=== PATIENT | female | born 1970 | race Caucasian/White ===

== ENCOUNTER 2016-05-16 09:41 | Observation (INO) ==
[2016-05-16 10:26] LABS: HEMATOCRIT 51.7 % (37.0-47.0); HEMOGLOBIN 17.8 g/dL (12.0-16.0); MANUAL DIFF NEEDED? YES; MCH 30.9 PG (27-31); MCHC 34.4 g/dL (33-37); MCV 89.8 FL (81-99); MPV 10.2 FL (7.4-10.4); PLT 316 X1000 (130-400); RBC 5.76 XMIL (4.2-5.4)
[2016-05-16 10:41] LABS: AGAP 17; ALBUMIN 4.1 g/dL (3.5-5.0); ALKALINE PHOSPHATASE 84 U/L (32-104); AMYLASE 69 U/L (20-200); BUN 17 mg/dL (8-22); CALCIUM 9.6 mg/dL (8.8-10.2); CHLORIDE 96 mmol/L (98-107); COSMO 276; GOT 21 U/L (10-30); GPT 21 U/L (10-36); LIPASE 32 U/L (13-60); POTASSIUM 4.6 mmol/L (3.5-5.1); SODIUM 136 mmol/L (136-145); TCO2 23 mmol/L (25-35); TOTAL BILIRUBIN 0.91 mg/dL (0.20-1.00); TOTAL PROTEIN 8.7 g/dL (6.3-8.3)
[2016-05-16] MEDS ORDERED: BENTYL IM ONE (10:44)
[2016-05-16] MEDS ORDERED: NS 1,000 ML IV ONE (10:44)
[2016-05-16] MEDS ORDERED: ZOFRAN IV ONE (10:44)
[2016-05-16 10:50] LABS: BANDS 14 % (0-1); LYMPHS 2 % (21-51); MONO 2 % (1-9)
--- NOTE | 2016-05-16 10:51 | PROVIDER DOCUMENTATION ---
HPI-Abdominal Pain/GI Problem - General Chief Complaint: Abdominal Pain Stated Complaint: ABD PAIN Time Seen by Provider: 05/16/16 10:35 Allergies/Adverse Reactions: Patient Allergies Allergy/AdvReac Type Severity Reaction Status Date / Time Penicillins Allergy Severe SWELLING Verified 04/17/16 21:17 propoxyphene HCl * Allergy Severe SHORTNESS Verified 04/17/16 21:17 [From Darvon] OF BREATH Sulfa (Sulfonamide Allergy Severe SHORTNESS Verified 04/17/16 21:17 Antibiotics) OF BREATH [Sulfa(Sulfonamide Antibiotics)] venom-wasp [wasp venom] Allergy Severe ANAPHYLAXIS Verified 04/17/16 21:17 ketorolac tromethamine * Allergy Mild RASH Verified 04/17/16 21:17 [From Toradol] codeine [Codeine] Allergy HIVES Verified 04/17/16 21:17 Home Medications: Home Medication List Medication Instructions Recorded Confirmed Last Taken Type Levetiracetam [Keppra] 500 mg PO BID 06/09/15 04/17/16 2 Weeks Ago History Ramipril [Altace] 2.5 mg PO DAILY 06/09/15 04/17/16 07/31/15 07:00 History Alprazolam [Xanax] 0.5 mg PO BID PRN PRN #45 tablet 06/11/15 04/17/16 2 Weeks Ago Rx Mupirocin Cream [Bactroban Cream] 1 applicatn TOP TID #1 tube 01/13/16 04/17/16 01/31/16 Rx Diclofenac Sodium 50 mg PO Q8-12H PRN PRN #30 02/02/16 04/17/16 Unknown Rx tablet. Glimepiride [Amaryl] 4 mg PO DAILY #30 tablet 02/02/16 04/17/16 Unknown Rx Omeprazole [Prilosec] 40 mg PO DAILY@0700 #30 capsule 02/02/16 04/17/16 Unknown Rx Promethazine [Phenergan] 25 mg PO Q6H PRN PRN #20 tablet 02/02/16 04/17/16 Unknown Rx Metoclopramide [Reglan] 10 mg PO Q6HR #30 tablet 04/16/16 04/17/16 Unknown Rx Ondansetron [Zofran] 4 mg PO Q6H PRN PRN #20 tablet 04/16/16 04/17/16 Unknown Rx - History of Present Illness-ABD Nature of Presenting Problems: A 45 y/o F presented with one day history of nausea multiple episodes of NBNB emesis associated with diffuse abdominal pain more prominant in epigastric region, no radiation of pain. Was doing well no recent travel, denies CP/SOB. No urinary symptoms Abdominal Pain Onset Location: reports: generalized abdomen Pain Radiation: reports: no radiation Quality of Pain: reports: cramping Severity in ED: reports: moderate Onset/Duration: reports: 24 hours ago Timing: reports: still present Activities at Onset: reports: none Exposure to sick contacts?: No Modifying Factors: improves with: nothing Associated Symptoms: reports: nausea, vomiting Last BM: unsure Dark Stools Present?: reports: none noticed Rectal Bleeding: reports: none # of Diarrhea Episodes: 3 Emesis Description: reports: clear Bruising or Bleeding Gums?: No Similar Symptoms Previously?: No Recently seen or treated by another doctor?: No Review of Systems - Adult - REVIEW OF SYSTEMS - ADULT Constitutional: reports: no symptoms reported Eyes: reports: no symptoms reported Ears, Nose, Mouth & Throat: reports: no symptoms reported Cardiovascular: reports: no symptoms reported Respiratory: reports: no symptoms reported Gastrointestinal: reports: see HPI Genitourinary: reports: no symptoms reported Musculoskeletal: reports: no symptoms reported Integumentary: reports: no symptoms reported Neurological: reports: no symptoms reported Psychiatric: reports: no symptoms reported Endocrine: reports: no symptoms reported Hematologic/Lymphatic: reports: no symptoms reported Allergic/Immunologic: reports: no symptoms reported All Other Systems: Reviewed and Negative Past History - Adult - PAST MEDICAL HISTORY-ADULT Review of Records: reports: Old Records Reviewed, Nursing Assessment Review, Medications Reviewed, Social history reviewed & non-contributory. Major Childhood Illnesses: reports: denies history Cardiovascular: reports: hyperlipidemia Respiratory: reports: denies history Gastrointestinal: reports: GERD Obstetrical/Gynecological: reports: denies history Genitourinary: reports: denies history Musculoskeletal: reports: arthritis, chronic pain, fibromyalgia Neurological: reports: Seizures/Epilepsy, TIA, other (sleep apnea) Endocrine/Immune: reports: Diabetes Other Conditions: reports: denies history - PRIOR SURGERIES/PROCEDURES Surgical/Procedure History: reports: other (arm, oral) - PRIOR HOSPITALIZATIONS Prior Hospitalizations: reports: for similar symptoms - IMMUNIZATION STATUS Childhood Immunizations: See Nurse Assessment Flu Vaccine: See Nurse Assessment - FAMILY HISTORY Family History: CAD under 55yo, CVA/TIA Physical Exam-General - PHYSICAL EXAM-ADULT Initial Vital Signs Reviewed: Yes - CONSTITUTIONAL General Appearance: appears well, mild distress - EYES Eyes: PERRL/EOMI, pink conjunctivae - HEAD, EARS, NOSE, MOUTH & THROAT HENMT: normocephalic/atraumatic, normal ENT inspection, pharynx normal - NECK Neck: non-tender, full range of motion - RESPIRATORY Respiratory: chest non-tender, lungs clear, normal breath sounds, no pleuratic chest pain, no respiratory distress, no accessory muscle use - CARDIOVASCULAR Cardiovascular: normal peripheral pulses, regular rate, rhythm, no edema, no gallop, no JVD, no murmur - GASTROINTESTINAL (ABDOMEN) Abdominal Exam: soft, no organomegaly, tenderness. 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, grossly normal, no motor/sensory deficits - PSYCHIATRIC Psych/Mental Status: normal mood/affect Progress - PLAN OF CARE/RESULTS Progress/Plan/Lab Results: Laboratory Tests 05/16/16 05/16/16 05/16/16 10:00 10:00 10:00 WBC 37.28 H RBC 5.76 H Hgb 17.8 H Hct 51.7 H MCV 89.8 MCH 30.9 MCHC 34.4 RDW Std Deviation 13.3 Plt Count 316 MPV 10.2 Neut % (Auto) Not Reportable Lymph % (Auto) Not Reportable [place] % (Auto) Not Reportable Eos % (Auto) Not Reportable Baso % (Auto) Not Reportable Neut # (Auto) Not Reportable Lymph # (Auto) Not Reportable [place] # (Auto) Not Reportable Eos # (Auto) Not Reportable Baso # (Auto) Not Reportable Segmented Neutrophils 75 Band Neutrophils 14 H Lymphocytes 2 L Monocytes 2 Metamyelocytes 4.0 Atypical Lymphocytes 3.0 Toxic Granulation 1+ Large Platelets OCCASIONAL Ovalocytes OCCASIONAL Sodium 136 Potassium 4.6 Chloride 96 L Carbon Dioxide 23 L Anion Gap 17 BUN 17 Creatinine 0.9 Estimated GFR/1.73 m2 > 60 BUN/Creatinine Ratio 19 Glucose 138 H Calculated Osmolality 276 Calcium 9.6 Total Bilirubin 0.91 AST 21 ALT 21 Alkaline Phosphatase 84 Troponin T < 0.010 Total Protein 8.7 H Albumin 4.1 Globulin 4.6 Albumin/Globulin Ratio 0.9 Amylase 69 Lipase 32 Plasma Lactate 05/16/16 12:00 WBC RBC Hgb Hct MCV MCH MCHC RDW Std Deviation Plt Count MPV Neut % (Auto) Lymph % (Auto) [place] % (Auto) Eos % (Auto) Baso % (Auto) Neut # (Auto) Lymph # (Auto) [place] # (Auto) Eos # (Auto) Baso # (Auto) Segmented Neutrophils Band Neutrophils Lymphocytes Monocytes Metamyelocytes Atypical Lymphocytes Toxic Granulation Large Platelets Ovalocytes Sodium Potassium Chloride Carbon Dioxide Anion Gap BUN Creatinine Estimated GFR/1.73 m2 BUN/Creatinine Ratio Glucose Calculated Osmolality Calcium Total Bilirubin AST ALT Alkaline Phosphatase Troponin T Total Protein Albumin Globulin Albumin/Globulin Ratio Amylase Lipase Plasma Lactate 3.0 H Orders Category Date Time Status FSBS/Accucheck Result AC + HS Care 05/16/16 13:06 Active Nursing- MD Consult Request ROUTINE Care 05/16/16 13:10 Active Saline Loc DIRECTED Care 05/16/16 09:55 Active MD [Physician/Provider Consults] Routine Cons 05/16/16 13:09 Ordered NPO Diet 05/16/16 09:[address] ABD/PELVIS W/ IV CONT ONLY [CT] Stat Exams 05/16/16 10:45 Draft A1C HGB W EST AVG GLUCOSE [CHEM] Routine Lab 05/17/16 06:00 Uncollected AMYLASE [CHEM] Stat Lab 05/16/16 10:00 Completed BLOOD CULTURE [BLDCUL] Stat Lab 05/16/16 12:00 Received CBC WITH ELECTRONIC DIFF [HEME] Stat Lab 05/16/16 10:00 Completed COMPREHENSIVE METABOLIC PANEL [CHEM] Stat Lab 05/16/16 10:00 Completed LACTATE, PLASMA [CHEM] Stat Lab 05/16/16 12:00 Completed LIPASE [CHEM] Stat Lab 05/16/16 10:00 Completed TROPONIN T Stat Lab 05/16/16 10:00 Completed URINALYSIS W/POSS RFLX CULT [URINALYSIS] Stat Lab 05/16/16 09:55 Uncollected 0.9% Sodium Chloride Inj [Ns] 1,000 ml Med 05/16/16 10:44 Discontinued IV 999 mls/hr Dicyclomine [Bentyl] Med 05/16/16 10:44 Discontinued 20 mg IM NOW ONE Insulin Human Regular [Humulin R] Med 05/16/16 16:00 Active See Protocol SUBQ 0700,1100,1600,2100 Ondansetron [Zofran] Med 05/16/16 10:44 Discontinued 4 mg IV NOW ONE EKG [EKG] Stat Ther 05/16/16 10:46 Ordered Transfer/Admit Order [TRANSFER] Routine Transfer 05/16/16 13:00 Ordered Vital Signs Temp Pulse Resp BP Pulse Ox 05/16/16 09:50 97.5 F L 108 H 20 105/74 100 Penicillins Allergy (Severe, Verified 04/17/16 21:17) SWELLING difficulty breathing propoxyphene HCl * [From Darvon] Allergy (Severe, Verified 04/17/16 21:17) SHORTNESS OF BREATH Sulfa (Sulfonamide Antibiotics) [Sulfa(Sulfonamide Antibiotics)] Allergy (Severe , Verified 04/17/16 21:17) SHORTNESS OF BREATH venom-wasp [wasp venom] Allergy (Severe, Verified 04/17/16 21:17) ANAPHYLAXIS ketorolac tromethamine * [From Toradol] Allergy (Mild, Verified 04/17/16 21:17) RASH codeine [Codeine] Allergy (Verified 04/17/16 21:17) HIVES Levetiracetam [Keppra] 500 mg PO BID 06/09/15 Ramipril [Altace] 2.5 mg PO DAILY 06/09/15 Alprazolam [Xanax] 0.5 mg PO BID PRN PRN #45 tablet 06/11/15 Mupirocin Cream [Bactroban Cream] 1 applicatn TOP TID #1 tube 01/13/16 Diclofenac Sodium 50 mg PO Q8-12H PRN PRN #30 tablet. 02/02/16 Glimepiride [Amaryl] 4 mg PO DAILY #30 tablet 02/02/16 Omeprazole [Prilosec] 40 mg PO DAILY@0700 #30 capsule 02/02/16 Promethazine [Phenergan] 25 mg PO Q6H PRN PRN #20 tablet 02/02/16 Metoclopramide [Reglan] 10 mg PO Q6HR #30 tablet 04/16/16 Ondansetron [Zofran] 4 mg PO Q6H PRN PRN #20 tablet 04/16/16 Dietary Diet NPO Start SatMay 16 0955 Laboratory 05/16/16 05/16/16 05/16/16 12:00 10:00 10:00 WBC 37.28 H RBC 5.76 H Hgb 17.8 H Hct 51.7 H MCV 89.8 MCH 30.9 MCHC 34.4 RDW Std Deviation 13.3 Plt Count 316 MPV 10.2 Neut % (Auto) Not Reportable Lymph % (Auto) Not Reportable [place] % (Auto) Not Reportable Eos % (Auto) Not Reportable Baso % (Auto) Not Reportable Neut # (Auto) Not Reportable Lymph # (Auto) Not Reportable [place] # (Auto) Not Reportable Eos # (Auto) Not Reportable Baso # (Auto) Not Reportable Segmented Neutrophils 75 Band Neutrophils 14 H Lymphocytes 2 L Monocytes 2 Metamyelocytes 4.0 Atypical Lymphocytes 3.0 Toxic Granulation 1+ Large Platelets OCCASIONAL Ovalocytes OCCASIONAL Sodium Potassium Chloride Carbon Dioxide Anion Gap BUN Creatinine Estimated GFR/1.73 m2 BUN/Creatinine Ratio Glucose Calculated Osmolality Calcium Total Bilirubin AST ALT Alkaline Phosphatase Troponin T < 0.010 Total Protein Albumin Globulin Albumin/Globulin Ratio Amylase Lipase Plasma Lactate 3.0 H 05/16/16 10:00 WBC RBC Hgb Hct MCV MCH MCHC RDW Std Deviation Plt Count MPV Neut % (Auto) Lymph % (Auto) [place] % (Auto) Eos % (Auto) Baso % (Auto) Neut # (Auto) Lymph # (Auto) [place] # (Auto) Eos # (Auto) Baso # (Auto) Segmented Neutrophils Band Neutrophils Lymphocytes Monocytes Metamyelocytes Atypical Lymphocytes Toxic Granulation Large Platelets Ovalocytes Sodium 136 Potassium 4.6 Chloride 96 L Carbon Dioxide 23 L Anion Gap 17 BUN 17 Creatinine 0.9 Estimated GFR/1.73 m2 > 60 BUN/Creatinine Ratio 19 Glucose 138 H Calculated Osmolality 276 Calcium 9.6 Total Bilirubin 0.91 AST 21 ALT 21 Alkaline Phosphatase 84 Troponin T Total Protein 8.7 H Albumin 4.1 Globulin 4.6 Albumin/Globulin Ratio 0.9 Amylase 69 Lipase 32 Plasma Lactate - EKG 1 Time of EKG reading by physician:: 13:18 Comments: NSR, non specific ST in V2-V3 - CT/MRI 1 CT Study: Abdomen Impression: See EMR Report - CONSULTS/PCP/HOSPITALIST Notification #1 *Consult/PCP/Hospitalist*: Dr Tinoco Consult Disposition: Admit Departure - Departure Time of Disposition Order: 13:19 DIAGNOSIS: Colitis Leukocytosis Qualifiers: Leukocytosis type: unspecified Qualified Code(s): D72.829 - Elevated white blood cell count, unspecified Disposition: ADMITTED INPATIENT 09 Certified Medical Emergency: Emergent Condition: Fair
[2016-05-16 10:52] LABS: LARGE PLATELETS OCCASIONAL
--- NOTE | 2016-05-16 12:24 | Diag Imaging Result Document ---
PROCEDURE NAME: CT ABD/PELVIS W/ IV CONT ONLY - 05/16/2016 CT ABDOMEN AND PELVIS WITH INTRAVENOUS CONTRAST: COMPARISON: 04/16/2016. FINDINGS: The stomach is more distended with fluid on today's exam. There is focal wall thickening at the gastric pylorus similar to prior. The small bowel is diffusely fluid filled with pronounced enhancement of the cruz which may reflect enteritis. The colon is not overly distended, and there is a normal quantity of stool. No free air or free fluid. No adenopathy. Urinary bladder, uterus, and rectum are normal. Advanced degenerative changes of the lower lumbar spine. No acute bony lesions. IMPRESSION: 1. The stomach is more distended with fluid. This may suggest partial gastric outlet obstruction. 2. Wall thickening of the gastric pylorus suggesting gastritis or peptic disease. 3. Possible enteritis.
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
[2016-05-16 15:31] LABS: URINE CULTURE NEEDED? NO; URINE MICRO REVIEW NEEDED? NO; URINE SOURCE CLEAN CATCH
[2016-05-16 15:39] LABS: BILIRUBIN URINE NEGATIVE (NEGATIVE); BLOOD URINE TRACE (NEGATIVE); COLOR YELLOW; GLUCOSE URINE NEGATIVE (NEGATIVE); LEUKOCYTES URINE NEGATIVE (NEGATIVE); NITRITE URINE NEGATIVE (NEGATIVE); PH URINE 6.5; PROTEIN URINE TRACE mg/dL (NEGATIVE); TURBIDITY URINE CLEAR (CLEAR); UR EPITHELIAL CELLS <10 /HPF (<10); URINE BACTERIA 1+ /HPF; URINE RBC <10 /HPF (<10); URINE WBC <10 /HPF (<10); UROBILINOGEN URINE NORMAL (NORMAL)
[2016-05-16] MEDS ORDERED: TYLENOL PO PRN (15:56)
[2016-05-16] MEDS: HUMULIN R SUBQ SCH ×2 (16:21→21:30)
[2016-05-16] MEDS: NS 1,000 ML IV SCH (16:29)
[2016-05-16] MEDS: CARAFATE LIQUID PO SCH ×2 (16:29→22:24)
[2016-05-16] MEDS: ZOFRAN IV PRN ×2 (16:45→22:25)
[2016-05-16] MEDS ORDERED: PNEUMOVAX 23 IM ONE (17:15)
[2016-05-16 17:35] LABS: SP GRAVITY URINE >= 1.030
[2016-05-16] MEDS: SODIUM CHLORIDE 0.9% INJ SCH (22:24)
[2016-05-16] MEDS: PROTONIX IV SCH (22:24)
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
[2016-05-17] MEDS: CARAFATE LIQUID PO SCH ×2 (03:48→08:05)
[2016-05-17] MEDS: NS 1,000 ML IV SCH ×2 (04:25→12:01)
[2016-05-17 06:26] LABS: HEMOGLOBIN A1C 4.8 % (4.8-6.0)
[2016-05-17 06:38] LABS: AGAP 10; ALBUMIN 2.9 g/dL (3.5-5.0); ALKALINE PHOSPHATASE 48 U/L (32-104); BUN 10 mg/dL (8-22); CALCIUM 8.3 mg/dL (8.8-10.2); CHLORIDE 103 mmol/L (98-107); COSMO 270; GOT 16 U/L (10-30); GPT 13 U/L (10-36); IRON SATURATION 47 %; MAGNESIUM 1.6 mg/dL (1.5-2.7); POTASSIUM 3.7 mmol/L (3.5-5.1); SODIUM 136 mmol/L (136-145); TCO2 23 mmol/L (25-35); TIBC 262 ug/dL; TOTAL BILIRUBIN 0.46 mg/dL (0.20-1.00); TOTAL IRON 122 ug/dL (49-151); TOTAL PROTEIN 6.4 g/dL (6.3-8.3); UNBOUND IRON 140 ug/dL (112-346)
[2016-05-17] MEDS: HUMULIN R SUBQ SCH ×2 (06:46→12:01)
[2016-05-17 06:49] LABS: FREE T4 0.89 ng/dL (0.93-1.70)
[2016-05-17 07:53] VITALS: BP 125/77
[2016-05-17 08:04] LABS: MANUAL DIFF NEEDED? NO
[2016-05-17] MEDS: SODIUM CHLORIDE 0.9% INJ SCH (08:05)
[2016-05-17] MEDS: PROTONIX IV SCH (08:05)
[2016-05-17 08:07] LABS: BASO% 0.2 % (0.0-0.8); EOS# 0.12 X1000 (0.0-0.7); EOS% 1.4 % (0.0-10.0); HEMATOCRIT 39.3 % (37.0-47.0); HEMOGLOBIN 13.5 g/dL (12.0-16.0); IMM GRAN# 0.02 X1000 (0.0-0.04); IMM GRAN% 0.2 % (0.0-0.5); LYMPH# 1.76 X1000 (1.2-3.4); LYMPH% 20.5 % (20.5-51.1); MCH 31.4 PG (27-31); MCHC 34.4 g/dL (33-37); MCV 91.4 FL (81-99); MONO# 0.41 X1000 (0.11-0.59); MONO% 4.8 % (1.7-9.3); MPV 10.5 FL (7.4-10.4); NEUT% 72.9 % (42.2-75.2); PLT 172 X1000 (130-400)
[2016-05-17 08:18] LABS: INR 1.01; PROTIME 10.7 Seconds (9.2-11.7); PTT 26.8 Seconds (22.0-36.0)
[2016-05-17] MEDS ORDERED: LOVENOX SUBQ SCH ×2 (09:00→21:00)
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
--- NOTE | 2016-05-17 13:38 | PROGRESS NOTE ---
DATE: 05/17/2016 SUBJECTIVE: The patient is currently refusing to undergo EGD. She insists on going home. She feels better. She said she will follow up as an outpatient for EGD. OBJECTIVE: Vital Signs: Temperature of 98.1 degrees, pulse of 71, respiratory rate 18, blood pressure 125/77, saturating 100% on room air. General: Moderately well nourished, lying in bed in no distress. HEENT: No pallor. No icterus. Neck is supple. Abdomen is soft, nontender, nondistended. Bowel sounds noted. No guarding or rebound. Extremities: No cyanosis, clubbing, edema. Neurologic: Alert and oriented. LABORATORY DATA: Her hemoglobin and hematocrit is 13.5 and 39.3, white count of 8.6, platelet count of 172,000. MCV of 91.4. INR of 1.01. Sodium 132, potassium 3.7, chloride 103, bicarb 28, anion gap of 10. BUN of 10, creatinine 0.7, glucose 86. Calcium is 8.3, total protein is 6.4, albumin of 2.9. AST 16, ALT 13. Alkaline phosphatase 48. Total bilirubin is 0.46. Phosphorus of 3. Magnesium 1.6, calcium 8.3, iron level of 122, TIBC 262, percentage iron 47. Ferritin of 143. TSH 1.52. B12 of 4-5, folate of 19.2. HB A1c of 4.8. Amylase of 69, lipase of 32. IMPRESSION AND PLAN: 1. Nausea, vomiting, diarrhea likely secondary to viral gastroenteritis. She will continue to take plenty of fluids and yogurt. Light activity twice daily. 2. Questionable pyloric wall and antral wall thickening on CT scan. Question of peptic ulcer disease seen on CT scan, and question of partial gastric outlet obstruction seen on CT scan. In this regard, we will continue Protonix / omeprazole twice daily and Carafate 1 g every 6 hours. She will follow with us in outpatient and schedule for EGD. 3. Type 2 diabetes. 4. Hypertension. 5. Seizure disorder, being managed by primary team. The patient was strongly encouraged to avoid any NSAIDs and follow gastroesophageal reflux life changes.
== END 2016-05-17 12:23 | disposition home or self-care (01) ==
LOC: ED 09:41 → EDIPHOLD 13:31 → 4N 14:46
PROVIDERS: ATTEND Emergency Medicine
DX: R11.2 Nausea with vomiting, unspecified (principal); E86.9 Volume depletion, unspecified; R19.7 Diarrhea, unspecified; I10 Essential (primary) hypertension; E11.40 Type 2 diabetes mellitus with diabetic neuropathy, unspecified; D72.829 Elevated white blood cell count, unspecified; K31.89 Other diseases of stomach and duodenum; R10.84 Generalized abdominal pain; K21.9 Gastro-esophageal reflux disease without esophagitis; G40.909 Epilepsy, unspecified, not intractable, without status epilepticus; I25.10 Atherosclerotic heart disease of native coronary artery without angina pectoris; E78.5 Hyperlipidemia, unspecified; Z87.11 Personal history of peptic ulcer disease; G89.29 Other chronic pain; M19.90 Unspecified osteoarthritis, unspecified site; F17.210 Nicotine dependence, cigarettes, uncomplicated; Z71.6 Tobacco abuse counseling; G47.30 Sleep apnea, unspecified; Z23 Encounter for immunization; Z79.899 Other long term (current) drug therapy; T42.6X6A Underdosing of other antiepileptic and sedative-hypnotic drugs, initial encounter; T42.4X6A Underdosing of benzodiazepines, initial encounter; T46.4X6A Underdosing of angiotensin-converting-enzyme inhibitors, initial encounter; T38.3X6A Underdosing of insulin and oral hypoglycemic [antidiabetic] drugs, initial encounter; T39.396A Underdosing of other nonsteroidal anti-inflammatory drugs [NSAID], initial encounter; Z91.120 Patient's intentional underdosing of medication regimen due to financial hardship; Z87.898 Personal history of other specified conditions; Z86.73 Personal history of transient ischemic attack (TIA), and cerebral infarction without residual deficits; Z82.49 Family history of ischemic heart disease and other diseases of the circulatory system; Z82.3 Family history of stroke
CPT/HCPCS: 74177; 80053; 81001; 82150; 82607; 82728; 82746; 82948; 83036; 83540; 83550; 83605; 83690; 83735; 84100; 84439; 84443; 84484; 85025; 85610; 85730; 87040; 90732; C9113; J0500; J2405; J7030; Q9967; S0164